=== PATIENT | male | born 2000 | race Caucasian/White ===

== ENCOUNTER 2021-12-01 01:03 | Emergency (ER) | payer SELFPAY ==
--- NOTE | 2021-12-01 01:08 | ED_ITS ---
HPI - General Adult General Chief complaint: Skin/Abscess/Foreign Body Stated complaint: infected Lt. hand/rigt leg/fever Time Seen by Provider: 12/01/21 01:08 History of Present Illness HPI narrative: 21M smoker without any known chronic medical history presents with significant other and a chief complaint of wounds on his right ankle that seemed to have become infected. He states that he cut his legs while working around some trash bags earlier in the week and he is developed increasing pain and redness and now there is drainage from the wound on his right ankle. Over the course of the week he developed a red painful lesion in the webspace between his thumb and index finger on left hand that was draining purulent material as well. He denies any prior history of skin infection. He is had subjective fever and chills which woke him up this evening. He denies chest pain or shortness of breath. He is not dizzy nor weak or lightheaded. He denies any nausea, vomiting or diarrhea. He denies any history of IV drug abuse Related Data Previous Rx's Medication Instructions Recorded doxycycline hyclate 100 mg tablet 100 mg PO BID #20 tabs 12/01/21 Allergies Allergy/AdvReac Type Severity Reaction Status Date / Time No Known Drug Allergies Allergy Verified 12/01/21 01:22 Review of Systems Review of Systems Narrative: GENERAL: See HPI HEENT: Denies sinus pain, ear pain, sore throat, difficulty swallowing, dizziness. RESPIRATORY: Denies dyspnea, cough, wheezing, hemoptysis, sputum. CARDIOVASCULAR: Denies chest pain, palpitations, orthopnea, edema, GASTROINTESTINAL: Denies nausea, vomiting, abdominal pain, diarrhea, constipation, melena. : Denies dysuria, frequency, incontinence, hematuria, urinary retention. MUSCULOSKELETAL: denies weakness, joint pain, or bony pain SKIN: See HPI NEUROLOGIC: Denies weakness, headache, numbness, change in speech, confusion, seizures, incoordination. PSYCHIATRIC: No concerning psychosocial issues. 12 point review of systems is negative except for those stated above Patient History Social History Smoking Status: Current every day smoker Exam Narrative Exam Narrative: GENERAL: [21] year old patient appears stated age. Well-developed patient, in mild distress. HEAD: Atraumatic. Normocephalic. EYES: Pupils equal round and reactive. Extraocular motions intact. No scleral icterus. No injection or drainage. ENT: Nose without bleeding, purulent drainage. Throat without erythema, tonsillar hypertrophy or exudate. Airway patent. NECK: Trachea midline. Non tender CARDIOVASCULAR: Regular rate and rhythm without murmurs, gallops, or rubs. RESPIRATORY: Clear to auscultation. Breath sounds equal bilaterally. No wheezes, rales, or rhonchi. GASTROINTESTINAL: Abdomen soft, non-tender, nondistended. EXTREMITIES: Moderate swelling and minimal erythema right lower extremity from mid calf down, there is a 3 x 2 cm scabbed lesion on the right lower lateral leg with some serous drainage that is cultured and sent off, there is no fluctuance or induration. No lymphangitis spread. There is no knee effusion or limited range of motion at joints to suggest any likelihood of septic arthritis. 2cm area of erythema and induration without fluctuance in 1st webspace of left hand BACK: Nontender without deformity or crepitance. No flank tenderness. NEURO: AOx3. SKIN: No rash or erythema of visible areas Initial Vital Signs Initial Vital Signs: Vital Signs Temperature 98.1 F 12/01/21 01:16 Pulse Rate 93 H 12/01/21 01:16 Respiratory Rate 18 12/01/21 01:16 Blood Pressure 128/59 L 12/01/21 01:16 Pulse Oximetry 100 12/01/21 01:16 Oxygen Delivery Method 12/01/21 01:16 Course Orders Ordered: ED Orders 12/01/21 01:13 XR ankle RT min 3V Stat Urine Drug Screen, Rapid Stat 12/01/21 01:14 Urinalysis and Microscopic Stat 12/01/21 01:20 Wound Culture and Gram Stain Stat 12/01/21 01:30 C-Reactive Protein Quant Stat Complete Blood Count AUTO DIFF Stat Comprehensive Metabolic Panel Stat Erythrocyte Sedimentation Rate Stat Lactate (Lactic Acid) Stat Magnesium Stat 12/01/21 02:15 Blood Culture Stat Discontinued Medications Doxycycline Hyclate (Doxycycline Hyclate 100 Mg Tablet) 100 mg PO NOW ONE Stop: 12/01/21 02:31 Sodium Chloride (Normal Saline 0.9%) 1,000 mls @ 1,000 mls/hr IV BOLUS ONE Stop: 12/01/21 02:12 Last Admin: 12/01/21 01:35 Dose: 1,000 mls/hr Vital Signs Vital signs: Vital Signs - 8 hr 12/01/21 01:16 Temperature 98.1 F Pulse Rate 93 H Respiratory Rate 18 Blood Pressure 128/59 L Pulse Oximetry 100 Oxygen Delivery Method Room Air Medical Decision Making Lab Data Result diagrams: 12/01/21 01:30 12/01/21 01:30 Labs: Lab Results 12/01/21 12/01/21 12/01/21 Range/Units 01:30 01:30 01:30 WBC 8.7 (4.5-11.0) X10^3/uL RBC 4.06 L (4.5-5.9) X10^6/uL Hgb 11.8 L (13.5-17.5) g/dL Hct 34.7 L (41-53) % MCV 85.4 (80-100) fL MCH 29.0 (26-34) PG MCHC 34.0 (30-36) % RDW 12.2 (11.6-14.8) % Plt Count 200 (150-400) X10^3/uL Neut % (Auto) 70.2 (50-75) % Lymph % (Auto) 17.6 L (25-40) % [place] % (Auto) 9.2 (3-14) % Eos % (Auto) 2.8 (2-4) % Baso % (Auto) 0.2 (0-2) % Neut # (Auto) 6100 (1730-3551) /uL Lymph # (Auto) 1500 (3997-7660) /uL [place] # (Auto) 800 (0-900) /uL Eos # (Auto) 200 (0-450) /uL Baso # (Auto) 0 (0-100) /uL ESR 59 H (0-15) MM/HR Sodium 139 (137-145) mmol/L Potassium 3.7 (3.4-5.1) mmol/L Chloride 99 (98-107) mmol/L Carbon Dioxide 33 H (22-32) mmol/L BUN 14 (9-20) mg/dL Creatinine 0.77 (0.66-1.25) mg/dL Estimated GFR > 60 (>60) mL/min BUN/Creatinine Ratio 18.2 (6-22) Glucose 112 H (70-100) mg/dL Lactate 1.1 (0.7-2.1) mmol/L Calcium 8.6 (8.4-10.2) mg/dL Magnesium 2.0 (1.6-2.3) mg/dL Total Bilirubin 0.3 (0.2-1.3) mg/dL AST 34 (17-59) IU/L ALT 20 (<50) IU/L Alkaline Phosphatase 74 (38-126) U/L C-Reactive Protein 15.0 H (<1.0) mg/dL Total Protein 7.6 (6.3-8.2) g/dL Albumin 3.9 (3.5-5.0) g/dL Globulin 3.7 (1.7-4.1) g/dL Albumin/Globulin Ratio 1.1 (1.0-2.8) Imaging Data Extremity x-ray #1: Radiologist's Impression: Close Ankle X-Ray (Signed) Vincenzo Tee - 12/01/21 [address]?[place] [address] XRay Report Signed Patient: Dave Middleton MR#: [id number] : 2000 Acct:[id number] Age/Sex: 21 / M Date of Service: 12/01/21 Loc: ED Accession Number: [id number] ?? Procedure: XR ankle RT min 3V Ordering Provider: Mike Baron D.O. PROCEDURE:? XR ANKLE RT MIN 3V ? INDICATIONS:? redness, swelling, infection? foreign body? gas? ? TECHNIQUE:? 3 views of the ankle were acquired.? ? COMPARISON:? None. ? FINDINGS:? ? Bones:? No fractures or dislocations.? Ankle mortise is normally aligned.? No suspicious bony lesions.? ? Soft tissues:? There is periarticular soft tissue swelling most prominent laterally.? No tibiotalar joint effusion.? Achilles tendon appears normal.? ? ? IMPRESSION:? ? 1. No fracture or dislocation. ? ? Dictated by: Vincenzo Tee M.D. on 12/01/2021 at 1:47 ? ? Approved by: Vincenzo Tee M.D. on 12/01/2021 at 1:48 ? MDM Narrative Medical decision making narrative: Patient with reassuring history and physical exam presents with redness and swelling consistent with cellulitis. There is no evidence of septic arthritis or abscess worthy of drainage. His labs are very reassuring and there is no indication that hospitalization is necessary. Patient given extensive return precautions and encouraged to follow closely. Questions answered to his apparent satisfaction Discharge Plan Departure Patient Disposition: Home Clinical Impression: Abscess of skin or subcutaneous tissue Instructions: DI for Cellulitis -- Adult, DI for Skin Abscess Activity Restrictions/Additional Instructions: *You have been diagnosed with [skin infection with possible small abscess.] *What to do: *Please continue to take your regular medications as directed. [ x] New medication prescriptions sent to your pharmacy: [ [facility]] [ ] New medication written as a paper prescription [ ] No new medications given *Please follow up with your primary care provider in 2-3 days, call for an appointment. Let them know you were seen in the Emergency Department and that we ask that you be seen in follow up. We will electronically transmit a record of today's note if your PCP is in our system *If you do not have a primary care provider please contact the [facility] Resource line at [phone]. They will ask some questions about your medical history and help get you set up with a doctor in the community. *Return to Emergency Department if you should have any new, worsening or concerning symptoms Prescriptions: New doxycycline hyclate 100 mg tablet 100 mg PO BID Qty: 20 0RF
--- NOTE | 2021-12-01 01:13 | DI.RAD.S_ITS ---
PROCEDURE: XR ANKLE RT MIN 3V INDICATIONS: redness, swelling, infection? foreign body? gas? TECHNIQUE: 3 views of the ankle were acquired. COMPARISON: None. FINDINGS: Bones: No fractures or dislocations. Ankle mortise is normally aligned. No suspicious bony lesions. Soft tissues: There is periarticular soft tissue swelling most prominent laterally. No tibiotalar joint effusion. Achilles tendon appears normal. IMPRESSION: 1. No fracture or dislocation. Dictated by: Vincenzo Tee M.D. on 12/01/2021 at 1:47 Approved by: Vincenzo Tee M.D. on 12/01/2021 at 1:48
[2021-12-01 01:16] VITALS: BP 128/59; PULSE 93; RESP 18; TEMP 36.7; O2SAT 100; BMI 23.6
--- NOTE | 2021-12-01 01:19 | PC.NURSE ---
xray at bedside
[2021-12-01] MEDS: SODIUM CHLORIDE 0.9% 1,000 ML 1000 ML IV (01:35)
[2021-12-01 01:53] LABS: Add Manual Diff / Slide Review NO; Basophils Absolute Auto 0 /uL (0-100); Basophils Percent Auto 0.2 % (0-2); Eosinophils Absolute Auto 200 /uL (0-450); Eosinophils Percent Auto 2.8 % (2-4); Hematocrit 34.7 % (41-53); Hemoglobin 11.8 g/dL (13.5-17.5); Lymphocytes Absolute Auto 1500 /uL (1100-4500); Lymphocytes Percent Auto 17.6 % (25-40); Mean Corpuscular Volume 85.4 fL (80-100); Monocytes Absolute Auto 800 /uL (0-900); Monocytes Percent Auto 9.2 % (3-14); Neutrophils Absolute Auto 6100 /uL (1500-7000); Neutrophils Percent Auto 70.2 % (50-75); Platelet Count 200 X10^3/uL (150-400); Red Blood Cell Count 4.06 X10^6/uL (4.5-5.9); Red Cell Distribution Width 12.2 % (11.6-14.8); White Blood Cell Count 8.7 X10^3/uL (4.5-11.0)
--- NOTE | 2021-12-01 01:55 | PC.NURSE ---
States that he was working in a trash pile that was really dirty - states that there were mice in the pile - states that he got multiple scratches to his legs and arms and that they have become infected - swelling noted to the right foot - multiple areas of scabbing and reddened areas to extremities
[2021-12-01 02:02] LABS: Lactate (Lactic Acid) 1.1 mmol/L (0.7-2.1)
[2021-12-01 02:06] LABS: Alanine Aminotransferase 20 IU/L (<50); Albumin 3.9 g/dL (3.5-5.0); Albumin Globulin Ratio 1.1 (1.0-2.8); Alkaline Phosphatase 74 U/L (38-126); Aspartate Aminotransferase 34 IU/L (17-59); BUN Creatinine Ratio 18.2 (6-22); Bilirubin Total 0.3 mg/dL (0.2-1.3); Blood Urea Nitrogen 14 mg/dL (9-20); Calcium 8.6 mg/dL (8.4-10.2); Carbon Dioxide 33 mmol/L (22-32); Chloride 99 mmol/L (98-107); Estimated Glomerular Filt Rate > 60 mL/min (>60); Globulin 3.7 g/dL (1.7-4.1); Glucose 112 mg/dL (70-100); HEMOLYSIS < 15 (0-50); Potassium 3.7 mmol/L (3.4-5.1); Sodium 139 mmol/L (137-145); Total Protein 7.6 g/dL (6.3-8.2)
[2021-12-01 02:28] LABS: Erythrocyte Sedimentation Rate 59 MM/HR (0-15)
[2021-12-01] MEDS: DOXYCYCLINE HYCLATE 100 MG TABLET PO (02:40)
[2021-12-02 07:20] LABS: Acinetobacter baumannii Not Detected (Not Detect); Candida albicans Not Detected (Not Detect); Candida glabrata Not Detected (Not Detect); Candida krusei Not Detected (Not Detect); Candida parapsilosis Not Detected (Not Detect); Candida tropicalis Not Detected (Not Detect); E. coli Not Detected (Not Detect); Enterobacter cloacae complex Not Detected (Not Detect); Enterobacteriaceae species Not Detected (Not Detect); Enterococcus species Not Detected (Not Detect); Haemophilus influenzae Not Detected (Not Detect); Listeria monocytogenes Not Detected (Not Detect); Methicillin-resistant gene Not Detected (Not Detect); Neisseria meningitidis Not Detected (Not Detect); Proteus species Not Detected (Not Detect); Pseudomonas aeruginosa Not Detected (Not Detect); Serratia marcescens Not Detected (Not Detect); Staphylococcus species Detected (Not Detect); Streptococcus agalactiae (Gr B Not Detected (Not Detect); Streptococcus pneumonia Not Detected (Not Detect); Streptococcus pyogenes (Gr A) Not Detected (Not Detect); Streptococcus species Not Detected (Not Detect)
== END 2021-12-01 02:46 | disposition home or self-care (01) ==
PROVIDERS: Emergency Provider Emergency Medicine
DX: L03.115 Cellulitis of right lower limb (principal); L03.012 Cellulitis of left finger
CPT/HCPCS: 36415; 73610; 80053; 83605; 83735; 85025; 85651; 86140; 87040; 87150; 99284

== ENCOUNTER 2022-01-23 17:38 | Emergency (ER) | payer SELFPAY ==
[2022-01-23 17:46] VITALS: BP 128/67; PULSE 92; RESP 15; TEMP 36.4; O2SAT 97
== END 2022-01-23 20:25 | disposition left against medical advice (07) ==
PROVIDERS: Emergency Provider Emergency Medicine
CPT/HCPCS: 99281